=== PATIENT | male | born 1995 ===

== ENCOUNTER 2018-05-18 09:55 | Emergency (ER) | payer BC ==
[2018-05-18 10:14] VITALS: RESP 18; O2SAT 96
--- NOTE | 2018-05-18 11:08 | C.PDOC ---
History Of Present Illness 22 year old male, with no significant past medical history, presents to the ED for evaluation of fever, chills, cough, runny nose, sore throat, nausea, vomiting, and cough which began 4 days ago. Patient states he did not receive the flu vaccination this season. Patient took Tylenol this morning. He denies back pain or urinary symptoms. Time Seen by Provider: 05/18/18 10:16 Chief Complaint (Nursing): Flu-like Symptoms History Per: Patient History/Exam Limitations: no limitations Onset/Duration Of Symptoms: Days (4) Current Symptoms Are (Timing): Still Present Associated Symptoms: Fever, Chills, Sore Throat, Cough, Nausea, Vomiting Additional History Per: Patient Past Medical History Reviewed: Historical Data, Nursing Documentation, Vital Signs Vital Signs: Last Vital Signs Temp 102 F H 05/18/18 10:11 Pulse 100 H 05/18/18 10:11 Resp 18 05/18/18 10:11 BP 129/82 05/18/18 10:11 Pulse Ox 96 05/18/18 10:11 - Medical History PMH: No Chronic Diseases Surgical History: No Surg Hx Family History: States: Unknown Family Hx - Social History Hx Alcohol Use: No Hx Substance Use: No - Immunization History Hx Tetanus Toxoid Vaccination: No Hx Influenza Vaccination: No Hx Pneumococcal Vaccination: No Review Of Systems Constitutional: Positive for: Fever, Chills ENT: Positive for: Throat Pain Respiratory: Positive for: Cough Gastrointestinal: Positive for: Nausea, Vomiting Genitourinary: Negative for: Dysuria, Frequency, Hematuria Musculoskeletal: Positive for: Other (generalized body aches ). Negative for: Back Pain Physical Exam - Physical Exam Appears: Non-toxic, No Acute Distress Skin: Normal Color, Warm, Dry, Other (flushed ) Head: Atraumatic, Normacephalic Eye(s): bilateral: Other (watery ) Nose: Normal, No Discharge Oral Mucosa: Moist Throat: Erythema, No Exudate Neck: Supple Chest: Symmetrical, No Deformity, No Tenderness Cardiovascular: Rhythm Regular, No Murmur Respiratory: Normal Breath Sounds, No Rales, No Rhonchi, No Wheezing Gastrointestinal/Abdominal: Soft, No Tenderness, No Guarding, No Rebound Extremity: Normal ROM, Capillary Refill (less than 2 seconds ) Neurological/Psych: Oriented x3, Normal Speech, Normal Cognition ED Course And Treatment O2 Sat by Pulse Oximetry: 96 (on RA) Pulse Ox Interpretation: Normal Medical Decision Making Medical Decision Making: Impression: 22 year old male with cough, runny nose, fever, chills, body aches, headache, nausea, vomiting Plan: * Tamiflu PO * Motrin PO * flu swab * reassess and disposition Progress: Tamiflu PO and Motrin PO given. Flu test is negative for flu A/B. Disposition Counseled Patient/Family Regarding: Diagnosis, Need For Followup, Rx Given - Disposition Referrals: Maira Najera [Staff Provider] - Disposition Time: 11:09 Prescriptions: Ibuprofen [Motrin] 600 mg PO TID #15 tab Oseltamivir Cap [Tamiflu] 1 cap PO BID #10 cap Instructions: Flu Forms: General Discharge Instructions, [facility] ([place]), Work Excuse - Clinical Impression Clinical Impression: Influenza-like illness - Scribe Statement The provider has reviewed the documentation as recorded by the Scribe (Divina Jama) Provider Attestation: All medical record entries made by the Scribe were at my direction and personally dictated by me. I have reviewed the chart and agree that the record accurately reflects my personal performance of the history, physical exam, medical decision making, and the department course for this patient. I have also personally directed, reviewed, and agree with the discharge instructions and disposition.
[2018-05-18 11:18] VITALS: BP 122/76; PULSE 72; TEMP 99.5
== END 2018-05-18 11:17 | disposition home or self-care (01) ==
LOC: C.ER 09:55
DX: J11.1 Influenza due to unidentified influenza virus with other respiratory manifestations (principal)